=== PATIENT | male | born 1975 | race Two or more races ===

== ENCOUNTER → 2016-08-01 | Outpatient (CLI) | payer MEDICAID ==
[2016-08-01 10:00] VITALS: BP 135/94
[2016-08-01 11:00] VITALS: BP 137/89
[2016-08-01 12:17] LABS: Basophils # (auto) 0.1 uL; Basophils % (auto) 0.7 % (0.0-2.0); DEFINITIVE VIEW TRANSMISSION; Eosinophils # (auto) 0.4 uL; Eosinophils % (auto) 3.9 % (0.0-7.0); Hematocrit 27.4 % (41.0-53.0); Hemoglobin 9.1 g/dL (13.5-17.5); Lymphocytes # (auto) 1.7 uL; Lymphocytes % (auto) 17.9 % (10.0-50.0); Mean Corpuscular Hemoglobin 26.4 pg (28.0-32.0); Mean Corpuscular Hgb Conc. 33.4 g/dL (32.0-36.0); Mean Corpuscular Volume 79.2 fL (80.0-100.0); Mean Platelet Volume 7.9 fL (7.4-10.4); Monocytes # (auto) 0.4 uL; Monocytes % (auto) 4.3 % (0.0-12.0); Neutrophils # (auto) 6.9 uL; Neutrophils % (auto) 73.2 % (37.0-80.0); Platelet Count (auto) 397 10^3/uL (140-450); Red Cell Distribution Width 14.6 % (11.6-16.0); White Blood Cell 9.4 10^3/uL (4.4-10.8)
[2016-08-01 12:21] LABS: Prothrombin Time 11.9 sec (9.37-12.3)
[2016-08-01 12:29] LABS: INR 1.16 (0.9-1.15)
[2016-08-01 13:03] LABS: BUN/Creatinine Ratio 18.9; Potassium 4.7 mmol/L (3.5-5.1)
== END | disposition home or self-care (01) ==
LOC: Rad HDHVI 09:51
PROVIDERS: ATTEND Internal Medicine Cardiovascular Disease
DX: I10 Essential (primary) hypertension (principal); D64.9 Anemia, unspecified; R79.1 Abnormal coagulation profile
CPT/HCPCS: 36415; 71020; 80048; 85025; 85610; 85730; 93005; G0463

== ENCOUNTER 2016-08-04 08:33 | Inpatient (IN) | payer MEDICAID ==
[~2016-08-04] VITALS: Ht 182.9 cm; Wt 140.9 kg
[2016-08-04] MEDS ORDERED: IOHEXOL 350 MG/ML 100ML IJ ONE (09:26)
[2016-08-04] MEDS ORDERED: LIDOCAINE 2%HCL (LOCAL ANESTH.) INJ 20ML MDV ONE (09:26)
[2016-08-04] MEDS ORDERED: ANGIOMAX 250 MG VIAL IV ONE (10:19)
[2016-08-04] MEDS ORDERED: SODIUM CHL 0.9% 0 ML ONE (10:19)
[2016-08-04] MEDS ORDERED: IODIXANOL 320MG/ML 100ML BTL IV ONE (10:19)
[2016-08-04] MEDS ORDERED: fentaNYL CITRATE 100 MCG/2 ML VL ONE (10:21)
[2016-08-04] MEDS ORDERED: SODIUM BICARBONATE 8.4 % INJ 50ML VIAL IV ONE (10:46)
[2016-08-04] MEDS ORDERED: MORPHINE SULF INJ 2 MG/ML SYRINGE 1ML IV PRN (12:15)
[2016-08-04] MEDS ORDERED: HYDROcodone-ACET 5/325MG TAB PO PRN (12:15)
[2016-08-04] MEDS ORDERED: NITROGLYCERIN 0.4 MG SL TAB SL PRN (12:15)
[2016-08-04] MEDS ORDERED: DEXTROSE (50%) 50ML SYRG IV PRN (12:30)
[2016-08-04] MEDS ORDERED: AMIT50TA3 PO (13:03)
[2016-08-04] MEDS ORDERED: ALPR1TAB7 PO (13:03)
[2016-08-04] MEDS ORDERED: NIF30XLT PO (13:03)
[2016-08-04] MEDS ORDERED: ATEN50TA PO (13:03)
[2016-08-04] MEDS ORDERED: GLIP-115 PO (13:03)
[2016-08-04] MEDS ORDERED: FOLI1TAB6 PO (13:03)
[2016-08-04] MEDS ORDERED: SIMV-13 PO (13:03)
[2016-08-04] MEDS ORDERED: FERR-7 PO (13:03)
[2016-08-04] MEDS ORDERED: PATI1POW PO (13:03)
[2016-08-04] MEDS ORDERED: SEVE800T8 PO (13:03)
[2016-08-04] MEDS ORDERED: CHOL50007 PO (13:03)
[2016-08-04] MEDS ORDERED: SITA50TA PO (13:03)
[2016-08-04] MEDS ORDERED: FURO80TA PO (13:03)
[2016-08-04] MEDS ORDERED: CHOL1TAB16 PO (13:03)
[2016-08-04] MEDS ORDERED: INSUINJ49 SC ×2 (13:03)
[2016-08-04] MEDS ORDERED: DULO1CAP PO (13:03)
[2016-08-04] MEDS ORDERED: ALPRAZolam 0.5 MG TAB PO PRN (13:30)
[2016-08-04] MEDS ORDERED: cloNIDine HCL 0.1 MG TAB ONE (13:48)
[2016-08-04] MEDS: cloNIDine HCL 0.1 MG TAB PO SCH ×2 (13:57→22:10)
[2016-08-04] MEDS ORDERED: FUROSEMIDE PO SCH ×2 (14:00→22:00)
[2016-08-04 14:15] VITALS: BP 183/103
[2016-08-04 15:53] LABS: Albumin 2.8 g/dL (3.4-5.0); BUN/Creatinine Ratio 20.3; Bilirubin, Total 0.1 mg/dL (0.2-1.0); Calcium 9.7 mg/dL (8.5-10.1); Potassium 4.9 mmol/L (3.5-5.1); Total Protein 7.1 g/dL (6.4-8.2)
[2016-08-04 16:06] LABS: Basophils # (auto) 0 uL; Basophils % (auto) 0.5 % (0.0-2.0); DEFINITIVE VIEW TRANSMISSION; Eosinophils # (auto) 0.3 uL; Eosinophils % (auto) 4.2 % (0.0-7.0); Hematocrit 25.9 % (41.0-53.0); Hemoglobin 8.7 g/dL (13.5-17.5); Lymphocytes # (auto) 2.3 uL; Lymphocytes % (auto) 27.1 % (10.0-50.0); Mean Corpuscular Hemoglobin 26.9 pg (28.0-32.0); Mean Corpuscular Hgb Conc. 33.5 g/dL (32.0-36.0); Mean Corpuscular Volume 80.2 fL (80.0-100.0); Mean Platelet Volume 7.7 fL (7.4-10.4); Monocytes # (auto) 0.6 uL; Monocytes % (auto) 7.5 % (0.0-12.0); Neutrophils # (auto) 5.1 uL; Neutrophils % (auto) 60.7 % (37.0-80.0); Platelet Count (auto) 329 10^3/uL (140-450); Red Cell Distribution Width 14.9 % (11.6-16.0); White Blood Cell 8.4 10^3/uL (4.4-10.8)
[2016-08-04] MEDS ORDERED: BRIN1SUS RIGHTEYE (16:17)
[2016-08-04] MEDS ORDERED: TIMO0.5S40 RIGHTEYE (16:17)
[2016-08-04 16:22] VITALS: BP 150/88
[2016-08-04] MEDS: InsuLIN REG 1unit/0.01ml Soln (100units/ml) SC SCH (17:00)
[2016-08-04] MEDS: ACCU-CHEK COMFORT CURVE STRIP VI SCH ×2 (17:01→22:00)
[2016-08-04] MEDS: glipiZIDE 5 MG TAB PO SCH (17:45)
[2016-08-04] MEDS: SEVELAMER 800 MG TAB PO SCH (17:45)
[2016-08-04] MEDS ORDERED: INSULIN 70/30 1unit/0.01ml Susp (100units/ml) SC SCH (18:00)
[2016-08-04] MEDS ORDERED: cloNIDine HCL 0.1 MG TAB PO SCH (18:00)
[2016-08-04] MEDS ORDERED: AMITRIPTYLINE HCL 25 MG TAB PO SCH (18:00)
[2016-08-04] MEDS: SOD CHL 0.45% 1,000 ML IV SCH (19:02)
[2016-08-04 22:00] VITALS: BP 125/75
[2016-08-04] MEDS ORDERED: ATORVASTATIN 20 MG TAB PO SCH (22:00)
[2016-08-04] MEDS ORDERED: InsuLIN REG 1unit/0.01ml Soln (100units/ml) SC SCH (22:00)
[2016-08-04] MEDS: FUROSEMIDE 40 MG TAB PO SCH (22:11)
[2016-08-04] MEDS: NIFEdipine ER 30 MG TAB PO SCH (22:12)
[2016-08-04] MEDS: FERROUS SULFATE 325 MG TAB PO SCH (22:12)
[2016-08-05] MEDS: SOD CHL 0.45% 1,000 ML IV SCH ×2 (01:15→09:15)
[2016-08-05 05:05] VITALS: BP 108/59
[2016-08-05] MEDS: InsuLIN REG 1unit/0.01ml Soln (100units/ml) SC SCH ×2 (06:23→11:30)
[2016-08-05] MEDS: cloNIDine HCL 0.1 MG TAB PO SCH ×2 (06:26→14:00)
[2016-08-05] MEDS: glipiZIDE 5 MG TAB PO SCH (06:26)
[2016-08-05] MEDS: ACCU-CHEK COMFORT CURVE STRIP VI SCH ×2 (06:29→11:30)
[2016-08-05 06:33] LABS: Albumin 2.6 g/dL (3.4-5.0); Bilirubin, Total 0.2 mg/dL (0.2-1.0); Calcium 9.4 mg/dL (8.5-10.1); Potassium 4.7 mmol/L (3.5-5.1); Total Protein 6.5 g/dL (6.4-8.2)
[2016-08-05] MEDS ORDERED: INSULIN 70/30 1unit/0.01ml Susp (100units/ml) SC SCH (07:00)
[2016-08-05] MEDS: SEVELAMER 800 MG TAB PO SCH ×2 (08:00→12:00)
[2016-08-05 08:10] VITALS: BP 114/60
[2016-08-05 09:00] VITALS: BP 114/60
[2016-08-05] MEDS: FUROSEMIDE 40 MG TAB PO SCH (09:30)
[2016-08-05] MEDS: FERROUS SULFATE 325 MG TAB PO SCH (09:30)
[2016-08-05] MEDS ORDERED: CHOLECALCIFEROL PO SCH (10:00)
[2016-08-05] MEDS ORDERED: PATIROMER SORBITEX CALCIUM 8.4 GM PO SCH (10:00)
[2016-08-05] MEDS ORDERED: ATENOLOL 50 MG TAB PO SCH (10:00)
[2016-08-05] MEDS: NIFEdipine ER 30 MG TAB PO SCH (10:00)
[2016-08-05] MEDS ORDERED: FOLIC ACID 1 MG TAB PO SCH (10:00)
[2016-08-05] MEDS ORDERED: Duloxetine HCl 20 MG PO SCH (10:00)
[2016-08-05 11:45] VITALS: BP 101/61
[2016-08-05 16:57] VITALS: BP 101/61
== END 2016-08-05 17:50 | disposition home or self-care (01) | DRG 460 ==
LOC: CATH 08:33 → WEST WING 08:34
PROVIDERS: ADMIT Internal Medicine Cardiovascular Disease; ATTEND Internal Medicine Cardiovascular Disease
PROC: 4A023N7 Measurement of Cardiac Sampling and Pressure, Left Heart, Percutaneous Approach (ICD-10-PCS; principal; 2016-08-04)
PROC: B2111ZZ Fluoroscopy of Multiple Coronary Arteries using Low Osmolar Contrast (ICD-10-PCS; 2016-08-04)
PROC: B2151ZZ Fluoroscopy of Left Heart using Low Osmolar Contrast (ICD-10-PCS; 2016-08-04)
PROC: B41F1ZZ Fluoroscopy of Right Lower Extremity Arteries using Low Osmolar Contrast (ICD-10-PCS; 2016-08-04)
DX: I13.11 Hypertensive heart and chronic kidney disease without heart failure, with stage 5 chronic kidney disease, or end stage renal disease (principal); N17.0 Acute kidney failure with tubular necrosis; E87.2 Acidosis; E11.21 Type 2 diabetes mellitus with diabetic nephropathy; N18.6 End stage renal disease; E11.22 Type 2 diabetes mellitus with diabetic chronic kidney disease; E11.69 Type 2 diabetes mellitus with other specified complication; I25.10 Atherosclerotic heart disease of native coronary artery without angina pectoris; E87.5 Hyperkalemia; D64.9 Anemia, unspecified; E78.5 Hyperlipidemia, unspecified; E66.01 Morbid (severe) obesity due to excess calories; E11.40 Type 2 diabetes mellitus with diabetic neuropathy, unspecified; Z99.2 Dependence on renal dialysis; Z68.41 Body mass index [BMI] 40.0-44.9, adult
CPT/HCPCS: 36415; 80053; 82962; 85025; 93458; 99152; J1815; Q9967

== ENCOUNTER 2017-03-20 18:59 | Inpatient (IN) | payer MEDICARE, MEDICAID ==
[~2017-03-20] VITALS: Ht 182.9 cm; Wt 141.5 kg
[~2017-03-20 18:59] MED LIST: ALPR1TAB7 PO; AMIT50TA3 PO; ATEN50TA PO; BRIN1SUS RIGHTEYE; CHOL1TAB16 PO; CHOL50007 PO; DULO1CAP PO; FERR-7 PO; FOLI1TAB6 PO; FURO80TA PO; GLIP-115 PO; INSUINJ49 SC; NIF30XLT PO; PATI1POW PO; SEVE800T8 PO; SIMV-13 PO; SITA50TA PO; TIMO0.5S40 RIGHTEYE
[2017-03-20] MEDS ORDERED: SODIUM CHLORIDE 0.9% 1,000 ML IV ONE (19:13)
[2017-03-20] MEDS ORDERED: ONDANSETRON HCL 4 MG/2 ML VIAL IV ONE (19:15)
[2017-03-20 19:31] LABS: Basophils # (auto) 0.1 uL; Basophils % (auto) 0.7 % (0.0-2.0); Eosinophils # (auto) 0.3 uL; Eosinophils % (auto) 2.7 % (0.0-7.0); Hematocrit 26.4 % (41.0-53.0); Hemoglobin 8.7 g/dL (13.5-17.5); Lymphocytes # (auto) 2.3 uL; Lymphocytes % (auto) 22.4 % (10.0-50.0); Mean Corpuscular Hemoglobin 28.9 pg (28.0-32.0); Mean Corpuscular Volume 87.6 fL (80.0-100.0); Mean Platelet Volume 6.9 fL (6.9-10.8); Monocytes # (auto) 0.6 uL; Monocytes % (auto) 5.5 % (0.0-12.0); Neutrophils # (auto) 7.2 uL; Neutrophils % (auto) 68.7 % (37.0-80.0); Platelet Count (auto) 334 10^3/uL (140-450); Red Cell Distribution Width 15.2 % (11.8-14.3); White Blood Cell 10.4 10^3/uL (4.4-10.8)
[2017-03-20 20:02] LABS: Albumin 3.1 g/dL (3.4-5.0); Alkaline Phosphatase 83 U/L (45-117); Anion Gap 13 (5-15); Aspartate Aminotransferase 16 U/L (15-37); BUN/Creatinine Ratio 6.8; Bilirubin, Total 0.4 mg/dL (0.2-1.0); Blood Urea Nitrogen 65 mg/dL (7-18); Carbon Dioxide 27 mmol/L (21-32); Chloride 93 mmol/L (98-107); GFR African American 8 mL/min; GFR Non-African American 7 mL/min; Glucose 185 mg/dL (74-106); Magnesium 2.6 mg/dL (1.6-2.6); Potassium 4.1 mmol/L (3.5-5.1); Sodium 133 mmol/L (136-145); Total Protein 7.4 g/dL (6.4-8.2)
[2017-03-20] MEDS ORDERED: cloNIDine HCL 0.1 MG TAB ONE (20:07)
[2017-03-20] MEDS ORDERED: cloNIDine HCL 0.1 MG TAB PO ONE (20:15)
[2017-03-20 20:20] LABS: Temperature: 21.4 C (20.0-25.0)
[2017-03-20] MEDS ORDERED: HYDROcodone-ACET 5/325MG TAB PO PRN (21:00)
[2017-03-20] MEDS ORDERED: MORPHINE SULF INJ 2 MG/ML SYRINGE 1ML IV PRN ×2 (21:00)
[2017-03-20] MEDS ORDERED: NITROGLYCERIN 0.4 MG SL TAB SL PRN (21:00)
[2017-03-20] MEDS ORDERED: ACETAMINOPHEN 500 MG TAB PO PRN (21:00)
[2017-03-20] MEDS ORDERED: ONDANSETRON HCL 4 MG/2 ML VIAL IV PRN (21:00)
[2017-03-20] MEDS ORDERED: MORPHINE SULF INJ 2 MG/ML SYRINGE 1ML ONE (21:06)
[2017-03-20] MEDS ORDERED: ONDANSETRON HCL 4 MG/2 ML VIAL ONE (21:06)
[2017-03-20 21:34] LABS: Urine Bilirubin Negative (Negative); Urine Blood TRACE /uL (Negative); Urine Color Yellow (Yellow); Urine Glucose 2+ mg/dL (Normal); Urine Ketone Negative (Negative); Urine Nitrite Negative (Negative); Urine RBC 3 /hpf (0 - 3); Urine Squamous Epithelial Cell FEW /hpf (<5); Urine Urobilinogen Normal (Negative); Urine pH 7.5 (5.0-8.0)
[2017-03-20 21:47] VITALS: BP 168/96
[2017-03-20] MEDS ORDERED: AMITRIPTYLINE HCL 25 MG TAB PO SCH (22:00)
[2017-03-20] MEDS ORDERED: ATORVASTATIN 20 MG TAB PO SCH (22:00)
[2017-03-21] MEDS ORDERED: FUROSEMIDE 20 MG TAB PO SCH (06:00)
[2017-03-21] MEDS ORDERED: LEVOTHYROXINE SODIUM 50 MCG TAB PO SCH (07:00)
[2017-03-21] MEDS ORDERED: glipiZIDE 5 MG TAB PO SCH (07:00)
[2017-03-21] MEDS ORDERED: SEVELAMER 800 MG TAB PO SCH (08:00)
[2017-03-21] MEDS ORDERED: DOCUSATE SOD 100 MG CAP PO SCH (10:00)
== END 2017-03-20 23:22 | disposition left against medical advice (07) | DRG 311 ==
LOC: EDBD 18:59 → ER 19:06 → TELE 19:07
PROVIDERS: ADMIT Nurse Practitioner Family; ATTEND Internal Medicine
DX: I24.9 Acute ischemic heart disease, unspecified (principal); I13.2 Hypertensive heart and chronic kidney disease with heart failure and with stage 5 chronic kidney disease, or end stage renal disease; N18.6 End stage renal disease; E11.22 Type 2 diabetes mellitus with diabetic chronic kidney disease; E87.1 Hypo-osmolality and hyponatremia; I25.10 Atherosclerotic heart disease of native coronary artery without angina pectoris; F32.9 Major depressive disorder, single episode, unspecified; D64.9 Anemia, unspecified; E03.9 Hypothyroidism, unspecified; E78.5 Hyperlipidemia, unspecified; E87.8 Other disorders of electrolyte and fluid balance, not elsewhere classified; I50.9 Heart failure, unspecified; E11.40 Type 2 diabetes mellitus with diabetic neuropathy, unspecified; E11.65 Type 2 diabetes mellitus with hyperglycemia; G47.30 Sleep apnea, unspecified; H40.9 Unspecified glaucoma; Z99.2 Dependence on renal dialysis; Z90.49 Acquired absence of other specified parts of digestive tract; Z90.5 Acquired absence of kidney; Z79.899 Other long term (current) drug therapy; Z79.84 Long term (current) use of oral hypoglycemic drugs; Z85.528 Personal history of other malignant neoplasm of kidney
CPT/HCPCS: 36415; 71010; 80053; 81001; 82550; 83036; 83735; 83880; 84484; 85025; 86141; 93005; 96374; 96375; 96376; 99291; J2405

== ENCOUNTER 2017-11-11 00:15 | Inpatient (IN) | payer MEDICARE, MEDICAID ==
[~2017-11-11] VITALS: Ht 182.9 cm; Wt 151.8 kg
[~2017-11-11 00:15] MED LIST changes: -TIMO0.5S40 RIGHTEYE; +TIMO0.5S49 RIGHTEYE
[2017-11-11] MEDS ORDERED: ONDANSETRON HCL 4 MG/2 ML VIAL IV ONE (01:15)
[2017-11-11 01:28] LABS: Basophils # (auto) 0.1 uL; Eosinophils # (auto) 0.1 uL; Lymphocytes # (auto) 1.2 uL; Monocytes # (auto) 0.3 uL; Monocytes % (auto) 4.4 % (0.0-12.0)
[2017-11-11 01:30] LABS: Basophils % (auto) 1.2 % (0.0-2.0); Eosinophils % (auto) 1.5 % (0.0-7.0); Hematocrit 18.7 % (41.0-53.0); Mean Corpuscular Hemoglobin 30.4 pg (28.0-32.0); Mean Corpuscular Hgb Conc. 33.5 g/dL (32.0-36.0); Mean Corpuscular Volume 90.7 fL (80.0-100.0); Neutrophils # (auto) 5.8 uL; Neutrophils % (auto) 76.9 % (37.0-80.0); Platelet Count (auto) 310 10^3/uL (140-450); Red Blood Cells 2.06 10^6/uL (4.5-5.90); Red Cell Distribution Width 16.5 % (11.8-14.3); White Blood Cell 7.6 10^3/uL (4.4-10.8)
[2017-11-11 01:32] LABS: Hemoglobin 6.3 g/dL (13.5-17.5)
[2017-11-11 01:35] LABS: INR 1.3 (0.9-1.15); Partial Thromboplastin Time 29.6 sec (23.78-33.04); Prothrombin Time 13.7 sec (9.27-12.13)
[2017-11-11 01:38] LABS: Albumin 3.4 g/dL (3.4-5.0); Calcium 8.5 mg/dL (8.5-10.1); Potassium 4.4 mmol/L (3.5-5.1)
[2017-11-11 01:48] LABS: BUN/Creatinine Ratio 5.7; Bilirubin, Total 0.8 mg/dL (0.2-1.0); Total Protein 7.6 g/dL (6.4-8.2)
[2017-11-11] MEDS ORDERED: traZODone HCL 50 MG TAB PO ONE (02:45)
[2017-11-11] MEDS ORDERED: LEVOFLOXACIN 500MG 100 ML IV ONE (03:00)
[2017-11-11] MEDS ORDERED: metroNIDAZOLE 500MG/100ML 100 ML IV ONE ×2 (03:30→05:00)
[2017-11-11] MEDS ORDERED: PIPERACILLIN-TAZOB 2.25GM 50 ML IV SCH (04:00)
[2017-11-11] MEDS ORDERED: DEXTROSE (50%) 50ML SYRG IV PRN ×2 (06:30)
[2017-11-11] MEDS: ACCU-CHEK COMFORT CURVE STRIP VI SCH ×4 (07:00→21:34)
[2017-11-11 07:35] VITALS: BP 117/70
[2017-11-11] MEDS ORDERED: ALPRAZolam 0.5 MG TAB PO PRN (07:45)
[2017-11-11] MEDS: SEVELAMER 800 MG TAB PO SCH ×3 (08:33→18:43)
[2017-11-11 09:00] VITALS: BP 164/70
[2017-11-11] MEDS: InsuLIN REG 1unit/0.01ml Soln (100units/ml) SC SCH ×4 (09:23→22:23)
[2017-11-11] MEDS ORDERED: PIO30T PO (09:35)
[2017-11-11] MEDS ORDERED: POM (09:35)
[2017-11-11] MEDS ORDERED: LEVO50TA7 PO (09:35)
[2017-11-11] MEDS ORDERED: DORZ2SOL22 RIGHTEYE (10:35)
[2017-11-11] MEDS ORDERED: TIMO0.5S49 RIGHTEYE (10:35)
[2017-11-11] MEDS ORDERED: LOVA20TA4 PO (10:35)
[2017-11-11] MEDS ORDERED: FENO160T8 PO (10:35)
[2017-11-11] MEDS ORDERED: CARB25TA22 PO (10:35)
[2017-11-11] MEDS ORDERED: TRAZ-181 PO (10:35)
[2017-11-11] MEDS ORDERED: CHOL4POW4 PO (10:37)
[2017-11-11] MEDS ORDERED: cloNIDine HCL 0.1 MG TAB PO PRN (12:30)
[2017-11-11] MEDS ORDERED: CEFTRIAXONE SODIUM 2 GM in D5W 5% 50 ML IV ONE (12:30)
[2017-11-11 12:38] VITALS: BP 182/93
[2017-11-11] MEDS ORDERED: CHOLECALCIFEROL (VITD3) 1,000 UNIT TAB PO SCH (13:27)
[2017-11-11] MEDS: CARBIDOPA W LEVODOPA 25/100mg TABLET PO SCH ×2 (15:05→22:21)
[2017-11-11] MEDS: ATENOLOL 50 MG TAB PO SCH (15:05)
[2017-11-11 17:27] VITALS: BP 152/75
[2017-11-11] MEDS ORDERED: AMITRIPTYLINE HCL 25 MG TAB PO SCH ×2 (22:00)
[2017-11-11 22:04] VITALS: BP 141/83
[2017-11-11] MEDS: CABOMETYX 60 MG PO SCH (22:23)
[2017-11-12 04:44] VITALS: BP 154/89
[2017-11-12] MEDS: CARBIDOPA W LEVODOPA 25/100mg TABLET PO SCH (06:00)
[2017-11-12] MEDS: InsuLIN REG 1unit/0.01ml Soln (100units/ml) SC SCH ×2 (06:27→12:25)
[2017-11-12] MEDS: ACCU-CHEK COMFORT CURVE STRIP VI SCH ×2 (06:27→12:13)
[2017-11-12] MEDS ORDERED: LEVOTHYROXINE SODIUM 50 MCG TAB PO SCH (07:00)
[2017-11-12 07:46] VITALS: BP 120/52
[2017-11-12] MEDS ORDERED: cefTRIAXone 1GM/10ml IVPUSH 10 ML IV SCH (09:00)
[2017-11-12] MEDS: SEVELAMER 800 MG TAB PO SCH ×2 (09:30→12:27)
[2017-11-12] MEDS ORDERED: CHOLECALCIFEROL (VITD3) 1,000 UNIT TAB PO SCH (10:00)
[2017-11-12] MEDS ORDERED: CHOLECALCIFEROL (VITD3) 1,000 UNIT TAB PO ONE (10:45)
[2017-11-12] MEDS: ATENOLOL 50 MG TAB PO SCH (10:59)
[2017-11-12] MEDS: CABOMETYX 60 MG PO SCH (11:02)
[2017-11-12 11:13] LABS: Basophils # (auto) 0.1 uL; Eosinophils # (auto) 0 uL; Eosinophils % (auto) 0.5 % (0.0-7.0); Hemoglobin 8.1 g/dL (13.5-17.5); Lymphocytes # (auto) 1.5 uL; Nucleated Red Blood Cells % 0.1 %; Red Cell Distribution Width 15.8 % (11.8-14.3)
[2017-11-12 11:15] LABS: Basophils % (auto) 1.3 % (0.0-2.0); Hematocrit 24.1 % (41.0-53.0); Lymphocytes % (auto) 22.5 % (10.0-50.0); Mean Corpuscular Hemoglobin 30.3 pg (28.0-32.0); Mean Corpuscular Hgb Conc. 33.5 g/dL (32.0-36.0); Mean Corpuscular Volume 90.6 fL (80.0-100.0); Monocytes # (auto) 0.4 uL; Monocytes % (auto) 5.2 % (0.0-12.0); Neutrophils # (auto) 4.8 uL; Neutrophils % (auto) 70.5 % (37.0-80.0); Platelet Count (auto) 299 10^3/uL (140-450); Red Blood Cells 2.67 10^6/uL (4.5-5.90); White Blood Cell 6.9 10^3/uL (4.4-10.8)
[2017-11-12 11:22] LABS: % Iron Saturation 90.4 % (20-55)
[2017-11-12 11:29] LABS: Albumin 3.5 g/dL (3.4-5.0); Bilirubin, Total 0.7 mg/dL (0.2-1.0); Calcium 8.3 mg/dL (8.5-10.1); Phosphorus 6.2 mg/dL (2.5-4.90); Potassium 4.5 mmol/L (3.5-5.1); Total Protein 7.7 g/dL (6.4-8.2)
[2017-11-12] MEDS ORDERED: PRAMIPEXOLE DIHYDROCHLORIDE MO 0.25 MG TAB PO SCH (11:45)
[2017-11-12 13:28] VITALS: BP 131/65
[2017-11-12 16:24] VITALS: BP 152/71
[2017-11-12 16:27] VITALS: BP 152/71
[2017-11-12] MEDS ORDERED: FERROUS SULFATE 325 MG TAB PO SCH (18:00)
[2017-11-12] MEDS ORDERED: ASCORBIC ACID 500 MG TAB PO SCH (22:00)
[2017-11-13] MEDS ORDERED: CHOLECALCIFEROL (VITD3) 1,000 UNIT TAB PO SCH (10:00)
== END 2017-11-12 17:30 | disposition left against medical advice (07) | DRG 180 ==
LOC: EDBD 00:15 → ER 00:15 → TELE 00:16 → TELE-WESTW 06:42
PROVIDERS: ADMIT Nurse Practitioner Family; ATTEND Nurse Practitioner Family
PROC: 30233N1 Transfusion of Nonautologous Red Blood Cells into Peripheral Vein, Percutaneous Approach (ICD-10-PCS; principal; 2017-11-11)
PROC: 5A1D70Z Performance of Urinary Filtration, Intermittent, Less than 6 Hours Per Day (ICD-10-PCS; 2017-11-11)
DX: C78.00 Secondary malignant neoplasm of unspecified lung (principal); N18.6 End stage renal disease; I13.2 Hypertensive heart and chronic kidney disease with heart failure and with stage 5 chronic kidney disease, or end stage renal disease; F33.2 Major depressive disorder, recurrent severe without psychotic features; J98.11 Atelectasis; C34.90 Malignant neoplasm of unspecified part of unspecified bronchus or lung; D64.9 Anemia, unspecified; E11.22 Type 2 diabetes mellitus with diabetic chronic kidney disease; E66.01 Morbid (severe) obesity due to excess calories; I48.91 Unspecified atrial fibrillation; E11.42 Type 2 diabetes mellitus with diabetic polyneuropathy; E03.9 Hypothyroidism, unspecified; E11.59 Type 2 diabetes mellitus with other circulatory complications; E11.621 Type 2 diabetes mellitus with foot ulcer; E61.1 Iron deficiency; E78.00 Pure hypercholesterolemia, unspecified; F41.9 Anxiety disorder, unspecified; G25.81 Restless legs syndrome; G47.00 Insomnia, unspecified; G47.10 Hypersomnia, unspecified; G47.33 Obstructive sleep apnea (adult) (pediatric); H54.61 Unqualified visual loss, right eye, normal vision left eye; I25.10 Atherosclerotic heart disease of native coronary artery without angina pectoris; I50.9 Heart failure, unspecified; L97.529 Non-pressure chronic ulcer of other part of left foot with unspecified severity; R29.6 Repeated falls; W19.XXXA Unspecified fall, initial encounter; Z79.4 Long term (current) use of insulin; Z79.899 Other long term (current) drug therapy; Z90.5 Acquired absence of kidney; Z99.2 Dependence on renal dialysis; I25.2 Old myocardial infarction; Z90.49 Acquired absence of other specified parts of digestive tract; Z85.528 Personal history of other malignant neoplasm of kidney
CPT/HCPCS: 36415; 36430; 70450; 71045; 80053; 82728; 82962; 83540; 83550; 83735; 83880; 84100; 84484; 85025; 85379; 85610; 85730; 86850; 86900; 86901; 86920; 87040; 87081; 90935; 93005; 96361; 96365; 96367; J0696; J1815; J2405; J2543; J3490; J7060

== ENCOUNTER 2017-11-15 16:47 | Emergency (ER) | payer MEDICARE, MEDICAID ==
[~2017-11-15] VITALS: Ht 182.9 cm; Wt 149.7 kg
[~2017-11-15 16:47] MED LIST changes: -BRIN1SUS RIGHTEYE; +CARB25TA22 PO; -CHOL1TAB16 PO; +CHOL4POW4 PO; +DORZ2SOL22 RIGHTEYE; -DULO1CAP PO; +FENO160T8 PO; -FERR-7 PO; -FOLI1TAB6 PO; -FURO80TA PO; +LEVO50TA7 PO; +LOVA20TA4 PO; -NIF30XLT PO; -PATI1POW PO; +PIO30T PO; +POM; -SIMV-13 PO; +TRAZ-181 PO
[2017-11-15 17:51] LABS: Basophils # (auto) 0.1 uL; Eosinophils # (auto) 0.1 uL; Eosinophils % (auto) 0.7 % (0.0-7.0); Hemoglobin 7.7 g/dL (13.5-17.5); Lymphocytes # (auto) 1.5 uL
[2017-11-15 17:53] LABS: Hematocrit 23.1 % (41.0-53.0); Lymphocytes % (auto) 16.1 % (10.0-50.0); Mean Corpuscular Hemoglobin 30.2 pg (28.0-32.0); Mean Corpuscular Hgb Conc. 33.2 g/dL (32.0-36.0); Mean Corpuscular Volume 90.9 fL (80.0-100.0); Monocytes # (auto) 0.4 uL; Monocytes % (auto) 4.6 % (0.0-12.0); Neutrophils # (auto) 7.2 uL; Neutrophils % (auto) 77.6 % (37.0-80.0); Platelet Count (auto) 310 10^3/uL (140-450); Red Blood Cells 2.54 10^6/uL (4.5-5.90); Red Cell Distribution Width 15.9 % (11.8-14.3); White Blood Cell 9.2 10^3/uL (4.4-10.8)
[2017-11-15 18:07] LABS: Alanine Aminotransferase 12 U/L (16-61); Albumin 3.2 g/dL (3.4-5.0); Anion Gap 19 (5-15); Calcium 8.3 mg/dL (8.5-10.1); Carbon Dioxide 21 mmol/L (21-32); Chloride 98 mmol/L (98-107); Glucose 67 mg/dL (74-106); Potassium 4.9 mmol/L (3.5-5.1); Sodium 138 mmol/L (136-145)
[2017-11-15 18:15] LABS: Alkaline Phosphatase 52 U/L (45-117); Aspartate Aminotransferase 33 U/L (15-37); BUN/Creatinine Ratio 4.5; Bilirubin, Total 0.7 mg/dL (0.2-1.0); GFR African American 3 mL/min; GFR Non-African American 2 mL/min; Total Protein 7.5 g/dL (6.4-8.2)
[2017-11-15 18:23] LABS: Blood Urea Nitrogen 107 mg/dL (7-18)
[2017-11-15] MEDS ORDERED: DEXTROSE 50% SYRINGE 50 ML IV ONE (19:58)
[2017-11-15] MEDS ORDERED: DEXTROSE (50%) 50ML SYRG IV ONE (20:15)
[2017-11-15] MEDS ORDERED: DEXTROSE 10% 1,000 ML IV ONE (20:15)
[2017-11-15 21:16] VITALS: BP 124/72
[2017-11-15 21:31] LABS: INR 1.29 (0.9-1.15); Partial Thromboplastin Time 29.9 sec (23.78-33.04); Prothrombin Time 13.6 sec (9.27-12.13)
== END 2017-11-15 21:16 | disposition left against medical advice (07) ==
LOC: ER 16:47
DX: I12.0 Hypertensive chronic kidney disease with stage 5 chronic kidney disease or end stage renal disease (principal); E11.22 Type 2 diabetes mellitus with diabetic chronic kidney disease; N18.6 End stage renal disease; E78.5 Hyperlipidemia, unspecified; I48.91 Unspecified atrial fibrillation; Z90.49 Acquired absence of other specified parts of digestive tract; Z53.29 Procedure and treatment not carried out because of patient's decision for other reasons
CPT/HCPCS: 36415; 71045; 80053; 82962; 83880; 84484; 85025; 85610; 85730; 93005; 94761; 96374; 99285; J7042

== ENCOUNTER 2017-12-01 11:28 | Inpatient (IN) | payer MEDICARE, MEDICAID ==
[2017-12-01] VITALS (9 sets, daily range): BP systolic 127–151; BP diastolic 68–90
[~2017-12-01] VITALS: Ht 177.8 cm; Wt 154.9 kg
[2017-12-01 12:23] LABS: Eosinophils # (auto) 0.1 uL; Hematocrit 18.7 % (41.0-53.0); Lymphocytes # (auto) 1.1 uL; Mean Corpuscular Hemoglobin 30.1 pg (28.0-32.0); Mean Corpuscular Hgb Conc. 32.5 g/dL (32.0-36.0); Monocytes # (auto) 0.3 uL; Neutrophils # (auto) 3.1 uL; Red Blood Cells 2.02 10^6/uL (4.5-5.90); White Blood Cell 4.6 10^3/uL (4.4-10.8)
[2017-12-01 12:25] LABS: Basophils # (auto) 0.1 uL; Basophils % (auto) 1.1 % (0.0-2.0); Eosinophils % (auto) 2.2 % (0.0-7.0); Mean Corpuscular Volume 92.6 fL (80.0-100.0); Monocytes % (auto) 7.1 % (0.0-12.0); Neutrophils % (auto) 66.6 % (37.0-80.0); Nucleated Red Blood Cells % 0.1 %; Platelet Count (auto) 238 10^3/uL (140-450); Red Cell Distribution Width 15.7 % (11.8-14.3)
[2017-12-01 12:33] LABS: Alanine Aminotransferase 9 U/L (16-61); Albumin 2.9 g/dL (3.4-5.0); Alkaline Phosphatase 45 U/L (45-117); Anion Gap 9 (5-15); Aspartate Aminotransferase 10 U/L (15-37); BUN/Creatinine Ratio 3.4; Bilirubin, Total 0.6 mg/dL (0.2-1.0); Blood Urea Nitrogen 28 mg/dL (7-18); Calcium 8.2 mg/dL (8.5-10.1); Carbon Dioxide 29 mmol/L (21-32); Chloride 102 mmol/L (98-107); GFR African American 9 mL/min; GFR Non-African American 8 mL/min; Glucose 140 mg/dL (74-106); Sodium 140 mmol/L (136-145); Total Protein 6.4 g/dL (6.4-8.2)
[2017-12-01 12:39] LABS: Hemoglobin 6.1 g/dL (13.5-17.5)
[2017-12-01] MEDS ORDERED: NITROGLYCERIN 0.4 MG SL TAB SL PRN (14:30)
[2017-12-01] MEDS ORDERED: ACETAMINOPHEN 500 MG TAB PO PRN (14:30)
[2017-12-01] MEDS ORDERED: MORPHINE SULF INJ 2 MG/ML SYRINGE 1ML IV PRN (14:30)
[2017-12-01] MEDS ORDERED: ZOLPIDEM TARTRATE 5 MG TAB PO PRN (14:30)
[2017-12-01] MEDS ORDERED: DEXTROSE (50%) 50ML SYRG IV PRN (14:30)
[2017-12-01] MEDS ORDERED: LACTULOSE 20Gm/30ML SOLN PO PRN (14:30)
[2017-12-01] MEDS ORDERED: cefTRIAXone 1GM/10ml IVPUSH 10 ML IV ONE ×2 (14:30→15:00)
[2017-12-01] MEDS ORDERED: HYDROcodone-ACET 5/325MG TAB PO PRN (14:30)
[2017-12-01] MEDS ORDERED: PATIENTS OWN MEDICATION (Alprazolam 1 TAB) PO PRN (14:30)
[2017-12-01] MEDS ORDERED: PANTOPRAZOLE 40 MG TAB PO ONE (15:00)
[2017-12-01] MEDS ORDERED: ISOSORBIDE DINITRATE 10 MG TAB PO ONE (15:00)
[2017-12-01] MEDS ORDERED: ASPirin 81 mg TAB PO ONE (15:00)
[2017-12-01] MEDS ORDERED: ENALAPRIL MALEATE 2.5 MG TAB PO ONE (15:00)
[2017-12-01] MEDS ORDERED: ALPRAZolam 0.5 MG TAB PO PRN (15:15)
[2017-12-01] MEDS ORDERED: CHOLESTYRAMINE 4 GM POWDER PO ONE (15:15)
[2017-12-01] MEDS ORDERED: glipiZIDE 5 MG TAB PO ONE (15:15)
[2017-12-01] MEDS ORDERED: LEVOTHYROXINE SODIUM 50 MCG TAB PO ONE (15:15)
[2017-12-01] MEDS ORDERED: CLINDAMYCIN 600MG IV 50 ML IV ONE (15:15)
[2017-12-01] MEDS: CARBIDOPA W LEVODOPA 25/100mg TABLET PO SCH (16:34)
[2017-12-01] MEDS: TIMOLOL MAL 0.5% OPTH(EYE) SOL 5ML RIGHTEYE SCH ×2 (16:55→22:00)
[2017-12-01] MEDS: InsuLIN REG 1unit/0.01ml Soln (100units/ml) SC SCH ×2 (17:51→23:00)
[2017-12-01] MEDS: ACCU-CHEK COMFORT CURVE STRIP VI SCH ×2 (17:51→23:00)
[2017-12-01] MEDS: (Sitagliptin Phosphate (Januvia) 50 MG) PO SCH (17:57)
[2017-12-01] MEDS ORDERED: PATIENTS OWN MEDICATION (Amitriptyline Hcl 50 MG) PO SCH (18:00)
[2017-12-01] MEDS ORDERED: SITAGLIPTIN PHOSPHATE 50 MG PO SCH (18:00)
[2017-12-01] MEDS ORDERED: SEVELAMER CARBONATE 1600 MG PO SCH (18:00)
[2017-12-01] MEDS: AMITRIPTYLINE HCL 25 MG TAB PO SCH (18:02)
[2017-12-01] MEDS: traZODone HCL 50 MG TAB PO SCH (18:02)
[2017-12-01] MEDS: INSULIN 70/30 1unit/0.01ml Susp (100units/ml) SC SCH (18:02)
[2017-12-01] MEDS: SEVELAMER 800 MG TAB PO SCH (18:31)
[2017-12-01] MEDS ORDERED: PATIENTS OWN MEDICATION (Timolol Maleate (Timolol Maleate Ophthalmi) 1 DROP) RIGHTEYE SCH (22:00)
[2017-12-01] MEDS: DORZOLAMIDE RIGHTEYE SCH (22:00)
[2017-12-01] MEDS: TIMOLOL EYE RIGHTEYE SCH (22:00)
[2017-12-01] MEDS: CHOLESTYRAMINE 4 GM POWDER PO SCH (22:06)
[2017-12-01] MEDS: PRAVASTATIN SODIUM 20 MG TAB PO SCH (22:06)
[2017-12-01] MEDS: SODIUM CHLOR 0.9% PF (SALINE LOCK) 10ML VIAL/SYR IV SCH (22:07)
[2017-12-01] MEDS: CARVEDILOL 12.5 MG TAB PO SCH (22:07)
[2017-12-01] MEDS: ISOSORBIDE DINITRATE 10 MG TAB PO SCH (22:08)
[2017-12-01] MEDS: CLINDAMYCIN 600MG IV 50 ML IV SCH (22:58)
[2017-12-01] MEDS: glipiZIDE 5 MG TAB PO SCH (22:59)
[2017-12-02] MEDS ORDERED: SITA50TA PO (01:18)
[2017-12-02 01:46] LABS: Hematocrit 25.5 % (41.0-53.0); Hemoglobin 7.7 g/dL (13.5-17.5)
[2017-12-02 05:00] VITALS: BP 129/65
[2017-12-02] MEDS: SODIUM CHLOR 0.9% PF (SALINE LOCK) 10ML VIAL/SYR IV SCH ×3 (05:20→22:59)
[2017-12-02] MEDS: CLINDAMYCIN 600MG IV 50 ML IV SCH ×3 (05:20→22:00)
[2017-12-02] MEDS: ISOSORBIDE DINITRATE 10 MG TAB PO SCH ×2 (05:21→22:39)
[2017-12-02] MEDS: INSULIN 70/30 1unit/0.01ml Susp (100units/ml) SC SCH ×2 (06:25→17:35)
[2017-12-02] MEDS: LEVOTHYROXINE SODIUM 50 MCG TAB PO SCH (06:25)
[2017-12-02] MEDS: InsuLIN REG 1unit/0.01ml Soln (100units/ml) SC SCH ×4 (06:25→22:00)
[2017-12-02] MEDS: ACCU-CHEK COMFORT CURVE STRIP VI SCH ×4 (06:25→22:00)
[2017-12-02 07:16] LABS: Basophils # (auto) 0.1 uL; Eosinophils # (auto) 0.1 uL; Eosinophils % (auto) 2.5 % (0.0-7.0); Hemoglobin 7.9 g/dL (13.5-17.5); Monocytes # (auto) 0.4 uL; Nucleated Red Blood Cells % 0.1 %
[2017-12-02 07:19] LABS: Hematocrit 23.3 % (41.0-53.0); Lymphocytes # (auto) 1.2 uL; Lymphocytes % (auto) 21.9 % (10.0-50.0); Mean Corpuscular Hemoglobin 31.5 pg (28.0-32.0); Mean Corpuscular Volume 92.7 fL (80.0-100.0); Monocytes % (auto) 7.9 % (0.0-12.0); Neutrophils # (auto) 3.7 uL; Neutrophils % (auto) 66.7 % (37.0-80.0); Platelet Count (auto) 246 10^3/uL (140-450); Red Blood Cells 2.52 10^6/uL (4.5-5.90); Red Cell Distribution Width 15.2 % (11.8-14.3); White Blood Cell 5.5 10^3/uL (4.4-10.8)
[2017-12-02 07:45] LABS: Albumin 3.1 g/dL (3.4-5.0); BUN/Creatinine Ratio 3.9; Bilirubin, Total 0.5 mg/dL (0.2-1.0); Calcium 8.9 mg/dL (8.5-10.1); Potassium 4.2 mmol/L (3.5-5.1)
[2017-12-02] MEDS: SEVELAMER 800 MG TAB PO SCH ×3 (08:17→17:35)
[2017-12-02 08:52] VITALS: BP 148/74
[2017-12-02] MEDS ORDERED: cefTRIAXone 1GM/10ml IVPUSH 10 ML IV SCH (09:00)
[2017-12-02] MEDS ORDERED: SODIUM CHL 0.9% 1000 ML BAG XX ONE (09:45)
[2017-12-02] MEDS ORDERED: EPOETIN ALFA 10,000 UNIT/1 ML VIAL IV ONE (09:45)
[2017-12-02] MEDS: TIMOLOL EYE RIGHTEYE SCH ×2 (10:00→22:00)
[2017-12-02] MEDS ORDERED: ENALAPRIL MALEATE 2.5 MG TAB PO SCH (10:00)
[2017-12-02] MEDS ORDERED: PATIENTS OWN MEDICATION (Carbidopa-Levodopa (Carbidopa/Levodopa Odt 25-100 mg) 1 TAB) PO SCH (10:00)
[2017-12-02] MEDS ORDERED: FENOFIBRATE 120 MG PO SCH (10:00)
[2017-12-02] MEDS ORDERED: TRICOR PO SCH (10:00)
[2017-12-02] MEDS ORDERED: ASPirin 81 mg TAB PO SCH (10:00)
[2017-12-02] MEDS ORDERED: PANTOPRAZOLE 40 MG TAB PO SCH (10:00)
[2017-12-02] MEDS: DORZOLAMIDE RIGHTEYE SCH ×2 (10:00→22:00)
[2017-12-02] MEDS ORDERED: PATIENTS OWN MEDICATION (Lovastatin 10 MG) PO SCH (10:00)
[2017-12-02] MEDS: CHOLESTYRAMINE 4 GM POWDER PO SCH ×2 (10:09→22:00)
[2017-12-02] MEDS: CARBIDOPA W LEVODOPA 25/100mg TABLET PO SCH (10:09)
[2017-12-02] MEDS: TIMOLOL MAL 0.5% OPTH(EYE) SOL 5ML RIGHTEYE SCH ×2 (10:11→22:00)
[2017-12-02] MEDS: CARVEDILOL 12.5 MG TAB PO SCH ×2 (10:12→22:59)
[2017-12-02] MEDS: glipiZIDE 5 MG TAB PO SCH ×2 (10:14→22:00)
[2017-12-02 13:05] VITALS: BP 144/79
[2017-12-02] MEDS: PROMETHAZINE HCL 25 MG/ML 1ML IV PRN ×3 (14:18→22:38)
[2017-12-02 17:00] VITALS: BP 185/97
[2017-12-02] MEDS: (Sitagliptin Phosphate (Januvia) 50 MG) PO SCH (17:23)
[2017-12-02] MEDS: traZODone HCL 50 MG TAB PO SCH (17:35)
[2017-12-02] MEDS: AMITRIPTYLINE HCL 25 MG TAB PO SCH (17:35)
[2017-12-02] MEDS: NALBUPHINE HCL 10 MG/1ml INJECTION IV PRN ×2 (18:26→22:38)
[2017-12-02 20:20] VITALS: BP 159/86
[2017-12-02 22:00] VITALS: BP 163/89
[2017-12-02] MEDS: PRAVASTATIN SODIUM 20 MG TAB PO SCH (22:59)
[2017-12-03] MEDS: NALBUPHINE HCL 10 MG/1ml INJECTION IV PRN (01:47)
[2017-12-03 05:00] VITALS: BP 193/95
[2017-12-03] MEDS: PROMETHAZINE HCL 25 MG/ML 1ML IV PRN (05:30)
[2017-12-03] MEDS: SODIUM CHLOR 0.9% PF (SALINE LOCK) 10ML VIAL/SYR IV SCH (05:32)
[2017-12-03] MEDS: CLINDAMYCIN 600MG IV 50 ML IV SCH (05:33)
[2017-12-03] MEDS ORDERED: cloNIDine HCL 0.1 MG TAB PO ONE (05:45)
[2017-12-03] MEDS: ISOSORBIDE DINITRATE 10 MG TAB PO SCH (06:03)
[2017-12-03] MEDS: ACCU-CHEK COMFORT CURVE STRIP VI SCH (06:37)
[2017-12-03] MEDS: LEVOTHYROXINE SODIUM 50 MCG TAB PO SCH (06:46)
[2017-12-03] MEDS: INSULIN 70/30 1unit/0.01ml Susp (100units/ml) SC SCH (06:46)
[2017-12-03] MEDS: InsuLIN REG 1unit/0.01ml Soln (100units/ml) SC SCH (06:47)
[2017-12-03 07:19] VITALS: BP 193/95
== END 2017-12-03 08:50 | disposition home or self-care (01) | DRG 291 ==
LOC: EDUNIT# 11:28 → EDBD 11:28 → ER 11:28 → TELE-CENTR 11:29
PROVIDERS: ADMIT Internal Medicine; ATTEND Internal Medicine
PROC: 30233N1 Transfusion of Nonautologous Red Blood Cells into Peripheral Vein, Percutaneous Approach (ICD-10-PCS; principal; 2017-12-01)
PROC: 5A1D70Z Performance of Urinary Filtration, Intermittent, Less than 6 Hours Per Day (ICD-10-PCS; 2017-12-02)
DX: I13.2 Hypertensive heart and chronic kidney disease with heart failure and with stage 5 chronic kidney disease, or end stage renal disease (principal); N18.6 End stage renal disease; C78.00 Secondary malignant neoplasm of unspecified lung; C64.9 Malignant neoplasm of unspecified kidney, except renal pelvis; D63.1 Anemia in chronic kidney disease; E03.9 Hypothyroidism, unspecified; E11.22 Type 2 diabetes mellitus with diabetic chronic kidney disease; E11.42 Type 2 diabetes mellitus with diabetic polyneuropathy; F32.9 Major depressive disorder, single episode, unspecified; E78.00 Pure hypercholesterolemia, unspecified; H54.61 Unqualified visual loss, right eye, normal vision left eye; I25.10 Atherosclerotic heart disease of native coronary artery without angina pectoris; I48.91 Unspecified atrial fibrillation; I50.9 Heart failure, unspecified; Z83.3 Family history of diabetes mellitus; Z90.5 Acquired absence of kidney; Z99.2 Dependence on renal dialysis; Z98.49 Cataract extraction status, unspecified eye; Z88.8 Allergy status to other drugs, medicaments and biological substances
CPT/HCPCS: 36415; 36430; 71045; 80053; 80061; 82550; 82962; 83036; 83880; 84443; 84484; 85014; 85018; 85025; 85045; 85652; 86141; 86850; 86900; 86901; 86920; 87081; 90935; 93005; 93926; 96365; 96375; J0885; J1642; J1815; J3490

== ENCOUNTER 2018-04-24 11:04 | Inpatient (IN) | payer MEDICARE, MEDICAID ==
[~2018-04-24] VITALS: Ht 188 cm; Wt 140.0 kg
[~2018-04-24 11:04] MED LIST changes: +DORZ2SOL18 RIGHTEYE; -DORZ2SOL22 RIGHTEYE
[2018-04-24 12:02] LABS: Basophils # (auto) 0.1 uL; Basophils % (auto) 0.9 % (0.0-2.0); Eosinophils # (auto) 0.1 uL; Eosinophils % (auto) 1.2 % (0.0-7.0); Hematocrit 30.4 % (41.0-53.0); Lymphocytes # (auto) 1.5 uL; Lymphocytes % (auto) 19.2 % (10.0-50.0); Mean Corpuscular Hemoglobin 31.4 pg (28.0-32.0); Mean Corpuscular Hgb Conc. 32.8 g/dL (32.0-36.0); Mean Corpuscular Volume 95.7 fL (80.0-100.0); Monocytes # (auto) 0.4 uL; Neutrophils # (auto) 5.9 uL; Neutrophils % (auto) 73.7 % (37.0-80.0); Platelet Count (auto) 300 10^3/uL (140-450); Red Blood Cells 3.18 10^6/uL (4.5-5.90); Red Cell Distribution Width 15.2 % (11.8-14.3)
[2018-04-24 12:13] LABS: Albumin 2.7 g/dL (3.4-5.0); BUN/Creatinine Ratio 4.5; Calcium 7.1 mg/dL (8.5-10.1); Potassium 3.8 mmol/L (3.5-5.1)
[2018-04-24 12:16] LABS: Bilirubin, Total 0.5 mg/dL (0.2-1.0); Total Protein 6.9 g/dL (6.4-8.2)
[2018-04-24] MEDS ORDERED: cefTRIAXone 1GM/50ML D5W 50 ML IV ONE (12:30)
[2018-04-24] MEDS ORDERED: ALPRAZolam 0.5 MG TAB PO PRN (14:15)
[2018-04-24] MEDS ORDERED: DEXTROSE (50%) 50ML SYRG IV PRN (14:15)
[2018-04-24] MEDS ORDERED: ONDANSETRON HCL 4 MG/2 ML VIAL IV PRN (14:15)
[2018-04-24] MEDS ORDERED: HYDROcodone-ACET 5/325MG TAB PO PRN (14:15)
[2018-04-24 14:53] LABS: INR 1.24 (0.9-1.15); Prothrombin Time 13.1 sec (9.27-12.13)
[2018-04-24] MEDS ORDERED: LIDOCAINE 2% (LOCAL ANESTH.) PF 5ml SDV ONE (15:38)
--- NOTE | 2018-04-24 15:50 | NUR ---
THORACENTEIS DONE BY DR BERKOWITZ IN ULTRASOUND. PT TOLERATED PROCEDURE WELL. VS [id number]%. 2550 ML OF FLUID REMOVED AND SENT TO LAB. POST CXR DONE.
[2018-04-24] MEDS: ACCU-CHEK COMFORT CURVE STRIP VI SCH ×2 (17:00→21:34)
[2018-04-24] MEDS: InsuLIN REG 1unit/0.01ml Soln (100units/ml) SC SCH ×2 (17:00→21:34)
[2018-04-24 17:20] VITALS: BP 152/89
--- NOTE | 2018-04-24 17:20 | NUR ---
Telemetry admit from CAMILO GARZA admitted to Telemetry unit. Patient oriented to JALIL COLLADO RN primary RN, unit, room, bed, and unit policies regarding patient care and visiting hours. Patient placed on bedside oxygen, weighed by bedscale and encouraged to call if they need something. All questions and concerns addressed, patient verbalized understanding.
[2018-04-24] MEDS: CARBIDOPA W LEVODOPA 25/100mg TABLET PO SCH (18:00)
[2018-04-24] MEDS: SEVELAMER 800 MG TAB PO SCH (18:00)
--- NOTE | 2018-04-24 18:30 | NUR ---
UNABLE TO OBTAIN BLOOD GLUCOSE PATIENT IN BATHROOM AFTER VOMITING WHILE IN BED. CHECKED BACK TWICE. OFFERED ZOFRAN, BUT PATIENT REFUSED. NON-ADMIT PO MEDS DUE TO PATIENT VOMITING.
--- NOTE | 2018-04-24 19:35 | NUR ---
ENDORSED CARE TO AMANDA GONZALES RN UNABLE TO COMPLETE ADMISSION. LETHALITY, ADVANCED DIRECTIVE, HOME MEDS, AND NEXT OF KIN UNABLE TO BE OBTAINED DUE TO PATIENT REMAINING IN BATHROOM. ENDORSED TO BRANDON GONZALES. Addendum: 04/24/18 at 1946 by JALIL COLLADO RN RN UNABLE TO OBTAIN PICTURE OF WOUND. PATIENT REPORTS 4 ABSCESSES AROUND PERIANAL AREA. DUE TO PATIENT REMAINING IN BATHROOM WHILE VOMITING, UNABLE TO OBTAIN. ENDORSED TO CHRISTIAN PATEL RN.
[2018-04-24] MEDS: ATENOLOL 25 MG TAB PO SCH (21:33)
[2018-04-24] MEDS ORDERED: traZODone HCL 50 MG TAB PO SCH (22:00)
[2018-04-24] MEDS ORDERED: ATORVASTATIN 20 MG TAB PO SCH (22:00)
[2018-04-24 23:38] VITALS: BP 130/86
[2018-04-25 05:00] VITALS: BP 112/49
[2018-04-25 06:15] LABS: Basophils # (auto) 0.1 uL; Basophils % (auto) 0.7 % (0.0-2.0); Eosinophils # (auto) 0.1 uL; Eosinophils % (auto) 1.2 % (0.0-7.0); Hemoglobin 10.5 g/dL (13.5-17.5); Lymphocytes # (auto) 1.5 uL; Mean Corpuscular Hemoglobin 31.9 pg (28.0-32.0); Mean Corpuscular Hgb Conc. 32.7 g/dL (32.0-36.0); Mean Corpuscular Volume 97.3 fL (80.0-100.0); Monocytes # (auto) 0.5 uL; Neutrophils % (auto) 78.1 % (37.0-80.0); Platelet Count (auto) 295 10^3/uL (140-450); Red Blood Cells 3.29 10^6/uL (4.5-5.90); Red Cell Distribution Width 15.1 % (11.8-14.3); White Blood Cell 10.3 10^3/uL (4.4-10.8)
[2018-04-25] MEDS: ACCU-CHEK COMFORT CURVE STRIP VI SCH ×3 (06:17→17:00)
[2018-04-25] MEDS: InsuLIN REG 1unit/0.01ml Soln (100units/ml) SC SCH ×3 (06:17→17:00)
[2018-04-25 06:51] LABS: BUN/Creatinine Ratio 5.2; Calcium 7.1 mg/dL (8.5-10.1); Potassium 4.3 mmol/L (3.5-5.1)
[2018-04-25] MEDS ORDERED: LEVOTHYROXINE SODIUM 50 MCG TAB PO SCH (07:00)
[2018-04-25 08:00] VITALS: BP 152/80
[2018-04-25] MEDS: SEVELAMER 800 MG TAB PO SCH ×3 (08:08→18:09)
--- NOTE | 2018-04-25 08:52 | NUR ---
OPENING SHIFT NOTE: Received report from NOC RNWhitley. Assumed care of patient. Patient resting comfortably in bed, denies pain. Bed in lowest position, rails x2 up and call light within reach. Updated on plan of care. Will continue to monitor.
[2018-04-25] MEDS: ATENOLOL 25 MG TAB PO SCH (10:18)
--- NOTE | 2018-04-25 11:12 | NUR ---
MD: Dr Carrion at bedside.
--- NOTE | 2018-04-25 11:31 | NUR ---
O2: Patient O2 sats on RA 78%, placed patient back on 2L NC. Patient states he doesn't use supplemental oxygen at home. Dr Damico paged for further orders.
--- NOTE | 2018-04-25 13:33 | NUR ---
: T/C from Dr Damico. aware of ABG results. pO2 48. Orders received for home O2 at 3L NC continuous. V/M left with SOPHIA Arias.
[2018-04-25 14:56] VITALS: BP 137/72
[2018-04-25 16:54] VITALS: BP 137/72
--- NOTE | 2018-04-25 16:58 | NUR ---
assessment Patient is a 42 year old male who is alert and oriented. Patients cognitive abilities are intact. Prior to admission patient lived home alone and functioned independently. Patient informed me he is able to care for his own ADLs. Per patient he will return home to his prior living arrangements post discharge and family will transport him home. Patient has a fww for home use. Patients PCP is Dr Bundy. Patient is on dialysis with [facility] T-TH-Sat. I informed patient he has a right to speak to a social professionals regarding all care. I informed patient he has a right to participate in any and all discharge planning. Patient is aware of visiting hours on the hospital floor. I informed patient he has a right to privacy. Patient does not have a POA and advanced directive. I have offered patient information on POA and advanced directives. I informed the patient the advantages and benefits of having an Advanced Directive. Patient verbalized understanding and agreed to discharge plan. Per ss consult arrange home 02 3L NC continuous. MD order has been sent to [facility] [phone]. Per Tia they are working on 02 order now. Addendum: 04/25/18 at 1702 by Juana Mcclure Amended: Links added.
[2018-04-25 17:00] VITALS: BP 145/77
[2018-04-25] MEDS: CARBIDOPA W LEVODOPA 25/100mg TABLET PO SCH (18:10)
--- NOTE | 2018-04-26 12:17 | NUR ---
re-assessment 02 was delivered to bedside last night prior to patient discharging home. Addendum: 04/26/18 at 1218 by Juana CORTES Amended: Links added.
[2018-04-30] MEDS ORDERED: DULO60CA PO (16:43)
== END 2018-04-25 18:40 | disposition home or self-care (01) | DRG 180 ==
LOC: EDBD 11:04 → ER 11:04 → OVERFLOW 11:05 → EAST 17:20
PROVIDERS: ADMIT Internal Medicine; ATTEND Internal Medicine
PROC: 0W9B3ZZ Drainage of Left Pleural Cavity, Percutaneous Approach (ICD-10-PCS; principal; 2018-04-24)
DX: C78.00 Secondary malignant neoplasm of unspecified lung (principal); J18.9 Pneumonia, unspecified organism; N18.6 End stage renal disease; I12.0 Hypertensive chronic kidney disease with stage 5 chronic kidney disease or end stage renal disease; E44.0 Moderate protein-calorie malnutrition; J91.0 Malignant pleural effusion; E03.9 Hypothyroidism, unspecified; D63.8 Anemia in other chronic diseases classified elsewhere; E11.22 Type 2 diabetes mellitus with diabetic chronic kidney disease; E66.01 Morbid (severe) obesity due to excess calories; E78.5 Hyperlipidemia, unspecified; H54.61 Unqualified visual loss, right eye, normal vision left eye; I25.10 Atherosclerotic heart disease of native coronary artery without angina pectoris; Z85.528 Personal history of other malignant neoplasm of kidney; Z90.5 Acquired absence of kidney; Z99.2 Dependence on renal dialysis; Z68.39 Body mass index [BMI] 39.0-39.9, adult; Z90.49 Acquired absence of other specified parts of digestive tract
CPT/HCPCS: 10022; 36415; 36600; 71045; 71046; 76604; 76942; 80048; 80053; 82805; 82962; 83605; 83986; 84484; 85025; 85610; 85730; 87040; 87070; 87205; 89051; 93005; 94761; 96365; G0378; J0696; J1815; J2001; J2405